=== PATIENT | female | born 1990 | race Caucasian/White ===

== ENCOUNTER 2018-11-03 19:38 | Emergency (ER) | payer OTHER ==
[~2018-11-03] VITALS: Ht 149.9 cm; Wt 87.5 kg
[2018-11-03 19:51] VITALS: Ht 149.9 cm; Wt 87.5 kg
[2018-11-03 22:02] VITALS: BP 130/86
== END 2018-11-03 22:35 | disposition home or self-care (01) ==
LOC: ED 19:38
DX: J06.9 Acute upper respiratory infection, unspecified (principal); E03.9 Hypothyroidism, unspecified; Z88.0 Allergy status to penicillin; M79.10 Myalgia, unspecified site
CPT/HCPCS: J1885; Q0162